=== PATIENT | female | born 1970 | race Caucasian/White ===

== ENCOUNTER → 2019-01-11 | Outpatient (CLI) | payer BC ==
[2019-01-11 08:26] LABS: EOS # 0.1 (0.04-0.40); EOS % 1.6 % (1.0-5.0); HEMATOCRIT 41.6 % (37.0-47.0); HEMOGLOBIN 13.2 g/dL (12.5-16.0); LYMPH# 1.6 (1.50-4.00); MEAN CELL VOLUME 96 fl (78-100); MEAN CORPUSCULAR HEMOGLOBIN 30 pg (27-31); MEAN CORPUSCULAR HGB CONC 32 g/dL (33-37); MEAN PLATELET VOLUME 9.6 fl (7.4-10.4); MONO # 0.5 (0.20-0.80); NEU # 2.8 (1.40-6.50); PLATELET COUNT 322 K/mm3 (130-400); RED BLOOD COUNT 4.34 M/mm3 (4.10-5.30); RED CELL DISTRIBUTION WIDTH 12.8 % (11.5-14.5); WHITE BLOOD COUNT 5.1 K/mm3 (4.8-10.8)
[2019-01-11 08:36] LABS: ALBUMIN 4.5 g/dL (3.5-5.0); CALCIUM 9.9 mg/dL (8.4-10.2); POTASSIUM 5.5 mmol/L (3.6-5.0); TOTAL BILIRUBIN 0.4 mg/dL (0.2-1.3); TOTAL PROTEIN 8.2 g/dL (6.3-8.2)
== END ==
LOC: MAMMO 08:01 → LAB 08:01 → MAMMO 08:30
PROVIDERS: Physician Assistant
DX: Z00.00 Encounter for general adult medical examination without abnormal findings (principal); Z12.39 Encounter for other screening for malignant neoplasm of breast; I10 Essential (primary) hypertension; T78.40XA Allergy, unspecified, initial encounter; G43.909 Migraine, unspecified, not intractable, without status migrainosus

== ENCOUNTER → 2020-07-09 | Outpatient (CLI) | payer BC | LOC: MAMMO 14:55 | DX: Z12.31 Encounter for screening mammogram for malignant neoplasm of breast (principal) ==

== ENCOUNTER → 2021-09-03 | Outpatient (CLI) | payer BC ==
[2021-09-03 07:42] LABS: BASO # 0.05 K/mm3 (0.02-0.10); EOS % 3.2 % (1.0-5.0); HEMATOCRIT 42.2 % (37.0-47.0); HEMOGLOBIN 13.5 g/dL (12.5-16.0); MEAN CELL VOLUME 94 fl (78-100); MEAN CORPUSCULAR HEMOGLOBIN 30 pg (27-31); MEAN CORPUSCULAR HGB CONC 32 g/dL (33-37); MEAN PLATELET VOLUME 9.3 fl (7.4-10.4); MONO # 0.49 K/mm3 (0.20-0.80); NEU # 3.88 K/mm3 (1.40-6.50); PLATELET COUNT 346 K/mm3 (130-400); RED BLOOD COUNT 4.51 M/mm3 (4.10-5.30); RED CELL DISTRIBUTION WIDTH 12.8 % (11.5-14.5); WHITE BLOOD COUNT 6.2 K/mm3 (4.8-10.8)
[2021-09-03 07:59] LABS: ALBUMIN 4.1 g/dL (3.5-5.0)
[2021-09-03 08:00] LABS: CALCIUM 10.4 mg/dL (8.3-10.5)
[2021-09-03 08:02] LABS: TOTAL PROTEIN 8.1 g/dL (6.4-8.3)
[2021-09-03 08:04] LABS: TOTAL BILIRUBIN 0.4 mg/dL (0.2-1.2)
== END ==
LOC: MAMMO 07:26
PROVIDERS: Physician Assistant
DX: Z00.00 Encounter for general adult medical examination without abnormal findings (principal); Z12.31 Encounter for screening mammogram for malignant neoplasm of breast; I10 Essential (primary) hypertension; R73.9 Hyperglycemia, unspecified; K90.9 Intestinal malabsorption, unspecified

== ENCOUNTER → 2021-10-03 | Outpatient (CLI) | payer BC ==
[2021-10-03 15:42] LABS: ALBUMIN 3.9 g/dL (3.5-5.0); POTASSIUM 4.3 mmol/L (3.5-5.1)
[2021-10-03 15:43] LABS: CALCIUM 9.7 mg/dL (8.3-10.5)
[2021-10-03 15:44] LABS: TOTAL PROTEIN 8.2 g/dL (6.4-8.3)
[2021-10-03 15:46] LABS: TOTAL BILIRUBIN 0.3 mg/dL (0.2-1.2)
== END ==
LOC: LAB 15:10
PROVIDERS: Physician Assistant
DX: R10.11 Right upper quadrant pain (principal)

== ENCOUNTER → 2021-10-09 | Outpatient (CLI) | payer BC | LOC: RAD 07:51 | DX: R10.11 Right upper quadrant pain (principal) ==

== ENCOUNTER → 2022-09-15 | Outpatient (CLI) | payer BC ==
[2022-09-15 08:58] LABS: BASO # 0.04 K/mm3 (0.02-0.10); EOS # 0.09 K/mm3 (0.04-0.40); EOS % 1.5 % (1.0-5.0); HEMATOCRIT 43.6 % (37.0-47.0); HEMOGLOBIN 14.3 g/dL (12.5-16.0); LYMPH# 1.39 K/mm3 (1.50-4.00); MEAN CELL VOLUME 94 fl (78-100); MEAN CORPUSCULAR HEMOGLOBIN 31 pg (27-31); MEAN CORPUSCULAR HGB CONC 33 g/dL (33-37); MEAN PLATELET VOLUME 9.8 fl (7.4-10.4); MONO # 0.46 K/mm3 (0.20-0.80); NEU # 3.97 K/mm3 (1.40-6.50); PLATELET COUNT 291 K/mm3 (130-400); RED BLOOD COUNT 4.65 M/mm3 (4.10-5.30); RED CELL DISTRIBUTION WIDTH 12.7 % (11.5-14.5)
[2022-09-15 09:04] LABS: POTASSIUM 4.4 mmol/L (3.5-5.1)
[2022-09-15 09:05] LABS: ALBUMIN 4.4 g/dL (3.5-5.0)
[2022-09-15 09:06] LABS: CALCIUM 10.4 mg/dL (8.3-10.5)
[2022-09-15 09:07] LABS: TOTAL PROTEIN 8.6 g/dL (6.4-8.3)
[2022-09-15 09:09] LABS: TOTAL BILIRUBIN 0.5 mg/dL (0.2-1.2)
[2022-09-15 09:14] LABS: MAGNESIUM 1.3 mg/dL (1.60-2.60)
== END ==
LOC: LAB 08:39
PROVIDERS: Physician Assistant
DX: Z00.00 Encounter for general adult medical examination without abnormal findings (principal); I10 Essential (primary) hypertension; E78.5 Hyperlipidemia, unspecified; Z13.29 Encounter for screening for other suspected endocrine disorder; E11.9 Type 2 diabetes mellitus without complications; K90.9 Intestinal malabsorption, unspecified; R25.2 Cramp and spasm

== ENCOUNTER → 2022-09-30 | Outpatient (CLI) | payer BC | LOC: MAMMO 07:45 | DX: Z12.31 Encounter for screening mammogram for malignant neoplasm of breast (principal) ==

== ENCOUNTER → 2022-12-22 | Outpatient (CLI) | payer BC ==
[2022-12-22 08:58] LABS: POTASSIUM 4.5 mmol/L (3.5-5.1)
[2022-12-22 08:59] LABS: CALCIUM 10.4 mg/dL (8.3-10.5)
[2022-12-22 09:06] LABS: MAGNESIUM 1.26 mg/dL (1.60-2.60)
== END ==
LOC: LAB 08:13
PROVIDERS: Physician Assistant
DX: E11.9 Type 2 diabetes mellitus without complications (principal); E83.42 Hypomagnesemia

== ENCOUNTER → 2023-09-22 | Outpatient (CLI) | payer BC | LOC: RAD 08:11 | DX: M25.551 Pain in right hip (principal); M25.552 Pain in left hip ==

== ENCOUNTER 2023-10-07 08:15 | Outpatient (RCR) | payer BC | END 2023-10-28 | disposition home or self-care (01) | LOC: PT | DX: M86.8X8 Other osteomyelitis, other site (principal) ==

== ENCOUNTER 2023-10-29 08:00 | Outpatient (RCR) | payer BC | END 2023-11-28 | disposition home or self-care (01) | LOC: PT | DX: M86.8X8 Other osteomyelitis, other site (principal) ==

== ENCOUNTER → 2023-11-26 | Outpatient (CLI) | payer BC ==
[2023-11-26 08:31] LABS: ALBUMIN 4.3 g/dL (3.5-5.0)
[2023-11-26 08:32] LABS: CALCIUM 9.9 mg/dL (8.3-10.5)
[2023-11-26 08:33] LABS: TOTAL PROTEIN 8.5 g/dL (6.4-8.3)
[2023-11-26 08:35] LABS: TOTAL BILIRUBIN 0.4 mg/dL (0.2-1.2)
== END ==
LOC: RAD 07:58
PROVIDERS: Physician Assistant
DX: Z13.29 Encounter for screening for other suspected endocrine disorder (principal); M25.561 Pain in right knee; I10 Essential (primary) hypertension; E78.5 Hyperlipidemia, unspecified; E11.9 Type 2 diabetes mellitus without complications; Z98.84 Bariatric surgery status

== ENCOUNTER → 2024-04-10 | Outpatient (CLI) | payer BC ==
[2024-04-10 08:11] LABS: BASO # 0.02 K/mm3 (0.02-0.10); EOS # 0.16 K/mm3 (0.04-0.40); EOS % 2.6 % (1.0-5.0); HEMATOCRIT 38.9 % (37.0-47.0); HEMOGLOBIN 12.5 g/dL (12.5-16.0); LYMPH# 1.79 K/mm3 (1.50-4.00); MEAN CELL VOLUME 97 fl (78-100); MEAN CORPUSCULAR HEMOGLOBIN 31 pg (27-31); MEAN CORPUSCULAR HGB CONC 32 g/dL (33-37); MEAN PLATELET VOLUME 9.3 fl (7.4-10.4); MONO # 0.57 K/mm3 (0.20-0.80); NEU # 3.72 K/mm3 (1.40-6.50); PLATELET COUNT 386 K/mm3 (130-400); RED BLOOD COUNT 4.03 M/mm3 (4.10-5.30); RED CELL DISTRIBUTION WIDTH 12.7 % (11.5-14.5); WHITE BLOOD COUNT 6.3 K/mm3 (4.8-10.8)
== END ==
LOC: LAB 07:59
PROVIDERS: Physician Assistant
DX: E11.9 Type 2 diabetes mellitus without complications (principal); K90.9 Intestinal malabsorption, unspecified

== ENCOUNTER → 2025-02-16 | Outpatient (CLI) | payer BC | LOC: MAMMO 07:58 | DX: Z12.31 Encounter for screening mammogram for malignant neoplasm of breast (principal) ==